=== PATIENT | female | born 1980 | race Hispanic/Latino ===

== ENCOUNTER 2022-12-22 16:16 | Observation (INO) | payer OTHER ==
[~2022-12-22] VITALS: Ht 162.6 cm; Wt 48.3 kg
[2022-12-22] MEDS ORDERED: ISOVUE-370 76% 100ML VIAL As Ordered ONE (16:42)
[2022-12-22] MEDS ORDERED: BIOT1CAP2 PO (16:50)
[2022-12-22 17:01] LABS: INR 1.11
[2022-12-22 17:02] LABS: PARTIAL THROMBOPLASTIN TIME 28.1 SECONDS (24.8-34.2)
[2022-12-22 17:50] LABS: BASO % 0.5 % (0.0-1.0); EOS # 0.1 10^3/uL (0.0-0.5); EOS % 1.4 % (0.0-3.0); HEMATOCRIT 29.5 % (36.0-47.0); LYMPH # 2.4 10^3/uL (1.5-5.0); LYMPH % 31.1 % (24.0-44.0); MEAN CORPUSCULAR HEMOGLOBIN 17.7 pg (27.0-33.0); MEAN CORPUSCULAR HGB CONC 27.1 g/dl (32.0-36.5); MEAN CORPUSCULAR VOLUME 65.3 fl (80.0-96.0); MONO # 0.5 10^3/uL (0.0-0.8); MONO % 5.9 % (2.0-8.0); NEUTROPHILS # 4.7 10^3/uL (1.5-8.5); PLATELET COUNT, AUTOMATED 450 10^3/uL (150-450); RED BLOOD COUNT 4.52 10^6/uL (4.00-5.40); WHITE BLOOD COUNT 7.7 10^3/uL (4.0-10.0)
[2022-12-22] MEDS ORDERED: ASPIRIN 81MG CHEW TABLET PO ONE (17:55)
[2022-12-22 19:04] LABS: PERCENT SATURATION 2.2 % (13.2-45.0)
[2022-12-22 19:06] LABS: FERRITIN 1.5 NG/ML (7.3-270.7); FOLATE 12.06 NG/ML (>5.4)
[2022-12-22] MEDS ORDERED: MED REC IN PROGRESS XX SCH (19:10)
[2022-12-22] MEDS ORDERED: OMEP40CA5 PO (20:30)
[2022-12-22] MEDS ORDERED: HOME MED LIST COMPLETE! XX SCH (20:35)
[2022-12-22 20:37] VITALS: BP 101/68; TEMP 98.1; O2SAT 100
[2022-12-22 23:20] VITALS: BP 90/66; TEMP 98.6; O2SAT 100
[2022-12-22 23:41] VITALS: BP 91/66; TEMP 98.1; O2SAT 99
[2022-12-23 00:42] VITALS: BP 93/61; TEMP 98.6
[2022-12-23 01:20] VITALS: BP 93/62; TEMP 98.1; O2SAT 100
[2022-12-23 06:00] VITALS: BP 95/62; TEMP 97.9; O2SAT 97
[2022-12-23 07:29] LABS: BASO % 0.6 % (0.0-1.0); EOS # 0.2 10^3/uL (0.0-0.5); EOS % 3.5 % (0.0-3.0); HEMATOCRIT 27.3 % (36.0-47.0); HEMOGLOBIN 7.9 g/dl (12.0-15.5); LYMPH # 2.4 10^3/uL (1.5-5.0); LYMPH % 39.1 % (24.0-44.0); MEAN CORPUSCULAR HEMOGLOBIN 19.5 pg (27.0-33.0); MEAN CORPUSCULAR HGB CONC 28.9 g/dl (32.0-36.5); MEAN CORPUSCULAR VOLUME 67.4 fl (80.0-96.0); MONO # 0.5 10^3/uL (0.0-0.8); MONO % 7.9 % (2.0-8.0); NEUTROPHILS % 48.7 % (36.0-66.0); PLATELET COUNT, AUTOMATED 352 10^3/uL (150-450); RED BLOOD COUNT 4.05 10^6/uL (4.00-5.40); WHITE BLOOD COUNT 6.2 10^3/uL (4.0-10.0)
[2022-12-23 07:59] LABS: BLOOD UREA NITROGEN 16 MG/DL (9-23); CARBON DIOXIDE LEVEL 26 MMOL/L (20-31); CHLORIDE LEVEL 110 MMOL/L (98-107); CREATININE FOR GFR 0.62 MG/DL (0.55-1.30); GLOMERULAR FILTRATION RATE > 60.0 (>58); GLUCOSE, FASTING 81 MG/DL (60-100); SODIUM LEVEL 144 MMOL/L (136-145)
[2022-12-23] MEDS ORDERED: FERROUS SULFATE 325MG TAB PO SCH (09:00)
[2022-12-23 09:12] LABS: HEMOGLOBIN 8.5 g/dl (12.0-15.5); MEAN CORPUSCULAR HEMOGLOBIN 18.9 pg (27.0-33.0); MEAN CORPUSCULAR HGB CONC 28.3 g/dl (32.0-36.5); MEAN CORPUSCULAR VOLUME 66.7 fl (80.0-96.0); PLATELET COUNT, AUTOMATED 353 10^3/uL (150-450); WHITE BLOOD COUNT 5.8 10^3/uL (4.0-10.0)
[2022-12-23] MEDS ORDERED: FERRIC CARBOXYMALTOSE INJ 750 MG, VIAL MATE ADAPTER 1 EACH in NS 250 ML IV ONE (10:00)
[2022-12-23] MEDS ORDERED: FERR1TAB8 PO (10:36)
== END 2022-12-23 14:37 | disposition home or self-care (01) ==
LOC: EDBD 16:16 → M ED 16:16 → M ED INP 18:26 → ENRESERV 19:52 → M MSPAV 20:40
PROVIDERS: ADMIT Internal Medicine Nephrology; ATTEND Internal Medicine Nephrology
DX: D62 Acute posthemorrhagic anemia (principal); D50.0 Iron deficiency anemia secondary to blood loss (chronic); G45.9 Transient cerebral ischemic attack, unspecified; N93.9 Abnormal uterine and vaginal bleeding, unspecified; Z79.899 Other long term (current) drug therapy
CPT/HCPCS: 36415; 70450; 70496; 70498; 70544; 70551; 71045; 80047; 80048; 82607; 82728; 82746; 83550; 85025; 85027; 85610; 85730; 86850; 86900; 86901; 86920; 87635; 93005; 93041; 93306; 94760; 96365; 99285; J1439; P9016; Q9967